=== PATIENT | male | born 1980 | race African-American/Black ===

== ENCOUNTER 2020-07-19 06:27 | Inpatient (IN) | payer OTHER ==
[~2020-07-19] VITALS: Ht 190.5 cm; Wt 113.4 kg
[2020-07-19] MEDS ORDERED: MORPHINE SULFATE 4 MG/ML CPJ (NOT FOR IM USE) IV STA (07:02)
[2020-07-19 07:39] LABS: EOSINOPHILS % 5.2 % (0.0-5.0); HEMATOCRIT. 41.7 % (42.0-52.0); HEMOGLOBIN. 14.4 g/dL (14.0-18.0); LYMPHOCYTES % 45.3 % (20.0-50.0); MEAN CORPUSCULAR HEMOGLOBIN 30.5 pg (28.0-32.0); MEAN CORPUSCULAR VOLUME 88.3 fL (80.0-94.0); MEAN PLATELET VOLUME 8.3 fl (7.4-10.4); MONOCYTES % 10.4 % (2.0-8.0); NEUTROPHILS % 38.1 % (40.0-76.0); PLATELET 220 x1000/uL (130-400); RED BLOOD CELL COUNT 4.72 mill/uL (4.7-6.1)
[2020-07-19 07:52] LABS: CHLORIDE 102 mEq/L (98-107)
[2020-07-19] MEDS ORDERED: HYDRALAZINE 20MG/ML VIAL IV ONE (08:30)
[2020-07-19] MEDS ORDERED: HYDROCODONE/ACETAMINOPHEN 5/325MG TABLET PO PRN (11:30)
[2020-07-19] MEDS ORDERED: IPRATROPIUM/ALBUTEROL 0.5-3(2.5)MG/3ML NEB NEB PRN (11:30)
[2020-07-19] MEDS ORDERED: ONDANSETRON HCL 4MG/2ML INJ IV PRN (11:30)
[2020-07-19] MEDS ORDERED: MORPHINE SULFATE 2 MG/ML CPJ (NOT FOR IM USE) IV PRN (11:30)
[2020-07-19] MEDS ORDERED: LORAZEPAM 2MG/ML CPJ IV PRN (11:30)
[2020-07-19] MEDS ORDERED: MAGNESIUM/ALUMINUM HYDROXIDE/SIMETHICONE 30ML UDC PO PRN (11:30)
[2020-07-19] MEDS ORDERED: DIPHENHYDRAMINE 50MG/ML VIAL IV PRN (11:30)
[2020-07-19] MEDS ORDERED: ACETAMINOPHEN 325MG TABLET PO PRN (11:30)
[2020-07-19] MEDS ORDERED: DOCUSATE SODIUM 100MG CAPSULE PO PRN (11:30)
[2020-07-19] MEDS ORDERED: GUAIFENESIN 200MG/10ML SUGAR FREE UDC PO PRN (11:30)
[2020-07-19] MEDS ORDERED: ENOXAPARIN 40MG/0.4ML SYR SUBCUT SCH (11:30)
[2020-07-19] MEDS ORDERED: NA PHOS,M-B/NA PHOS,DI-BA ENEMA 118ML PR PRN (11:30)
[2020-07-19] MEDS: ENOXAPARIN 30MG/0.3ML SYR SUBCUT SCH ×2 (12:08→20:30)
[2020-07-19] MEDS: ASPIRIN 81MG EC TABLET PO SCH (12:08)
[2020-07-19 14:57] LABS: CHLORIDE 102 mEq/L (98-107)
[2020-07-19] MEDS ORDERED: REGADENOSON 0.4 MG/5 ML IV NR (15:45)
[2020-07-19] MEDS: CLONIDINE 0.1MG TABLET PO PRN (16:36)
[2020-07-19] MEDS ORDERED: SITA1TAB6 MT (16:46)
[2020-07-19 17:00] VITALS: BP 148/112
[2020-07-19] MEDS ORDERED: DEXTROSE 50% WATER 50ML SYRINGE IV PRN ×2 (17:00)
[2020-07-19] MEDS: BLOOD SUGAR DIAGNOSTIC STRIP TEST SCH ×2 (17:20→20:29)
[2020-07-19] MEDS: INSULIN LISPRO 100 UNITS/ML SUBCUT SCH ×2 (19:21→20:29)
[2020-07-19 20:00] VITALS: BP 148/112
[2020-07-20] VITALS (7 sets, daily range): BP systolic 121–168; BP diastolic 69–98
[2020-07-20] MEDS: CLONIDINE 0.1MG TABLET PO PRN (05:10)
[2020-07-20] MEDS: BLOOD SUGAR DIAGNOSTIC STRIP TEST SCH ×3 (05:56→16:54)
[2020-07-20 06:23] LABS: CHLORIDE 100 mEq/L (98-107)
[2020-07-20 06:27] LABS: BASOPHILS % 0.8 % (0.0-2.0); EOSINOPHILS % 4.3 % (0.0-5.0); HEMATOCRIT. 42.5 % (42.0-52.0); HEMOGLOBIN. 14.9 g/dL (14.0-18.0); LYMPHOCYTES % 40.4 % (20.0-50.0); MEAN CORPUSCULAR VOLUME 88.4 fL (80.0-94.0); MEAN PLATELET VOLUME 8.1 fl (7.4-10.4); MONOCYTES % 11.7 % (2.0-8.0); NEUTROPHILS % 42.8 % (40.0-76.0); PLATELET 214 x1000/uL (130-400); RED BLOOD CELL COUNT 4.81 mill/uL (4.7-6.1); RED CELL DISTRIBUTION WIDTH 12.7 % (11.6-14.6)
[2020-07-20 06:31] LABS: LDL CHOLESTEROL 95 mg/dL (5-100)
[2020-07-20 06:32] LABS: HDL CHOLESTEROL 34 mg/dL (40-59); T4 FREE 0.84 ng/dL (0.76-1.46)
[2020-07-20] MEDS: INSULIN LISPRO 100 UNITS/ML SUBCUT SCH ×3 (07:50→16:54)
[2020-07-20] MEDS: ENOXAPARIN 30MG/0.3ML SYR SUBCUT SCH (08:07)
[2020-07-20] MEDS: ASPIRIN 81MG EC TABLET PO SCH (08:07)
[2020-07-20] MEDS ORDERED: REGADENOSON 0.4 MG/5 ML IV ONE (11:11)
== END 2020-07-20 20:30 | disposition home or self-care (01) | DRG 303 ==
LOC: ER 06:27 → 6WST 11:06 → EDBEDREQ 11:09 → EDBEDREQTM 11:09 → ENRESERV 15:28
PROVIDERS: ADMIT Internal Medicine; ATTEND Internal Medicine
DX: I25.10 Atherosclerotic heart disease of native coronary artery without angina pectoris (principal); E11.9 Type 2 diabetes mellitus without complications; I10 Essential (primary) hypertension; Z20.822 Contact with and (suspected) exposure to COVID-19; Z79.899 Other long term (current) drug therapy
CPT/HCPCS: 36415; 71045; 78452; 80048; 80053; 80061; 82962; 83036; 83880; 84439; 84443; 84484; 85025; 85379; 87426; 93005; 99285; A9500; J0360; J1650; J1815; J2270; J2785